=== PATIENT | male | born 1970 | race Caucasian/White ===

== ENCOUNTER 2018-09-28 09:36 | Day surgery (SDC) | payer BC ==
[2018-09-28 11:09] VITALS: TEMP 97.9
--- NOTE | 2018-09-28 11:57 | US ---
EXAMINATION TYPE: US renal artery duplex complet DATE OF EXAM: 09/28/2018 COMPARISON: US CLINICAL HISTORY: HTN, I10. MEASUREMENTS: RENAL SIZE: Rt Kidney: 10.3 x 5.7 x 6.1 cm Lt Kidney: 10.8 x 5.9 x 5.4 cm RESISTANCE INDEX Right: 0.69 Left: 0.69 RA/AO RATIO (< 3.5 ) Right: 1.2 Left: 1.3 RA VELOCITY ( < 180 cm/s) Right: 150 Left: 159 Renals and aorta unremarkable. No ultrasound evidence for renal artery stenosis. Good upstroke on seg mentals at renal hilum. Low resistive waveforms noted throughout. Kidneys show normal cortical medullary differentiation.Grayscale, color Doppler, spectral Doppler reinaldo ging performed. IMPRESSION: Renal artery stenosis is not evident.
--- NOTE | 2018-09-28 13:00 | CT ---
DATE OF EXAM: 09/28/2018 COMPARISON: NONE CT DLP: 1067 mGycm HISTORY: An area PROCEDURE: Maximal barrier technique was utilized. After informed consent, the skin overlying a suit able path to the left kidney lower pole was localized using CT guidance, the skin was prepped and jaqui ped. Lidocaine was used for local anesthesia. A skin bailey made with a scalpel. Using CT guidance, a 17-gauge needle was advanced into in position at the posterior and inferior cortex of the left kidn ey where coaxial placement of an 18-gauge needle was used and core biopsy obtained. Four passes made in total. Hemostasis was achieved. There was no immediate complication and patient remained in sta ble condition. Specimen submitted to Pathology. IMPRESSION: Status post CT guided core biopsy of left renal cortex, pathology pending. This procedur e performed by the undersigned.
[2018-09-28 17:43] VITALS: BP 101/58; PULSE 85; RESP 18
== END 2018-09-28 16:29 | disposition home or self-care (01) ==
LOC: RADPROMAIN 09:36
PROVIDERS: ATTEND Internal Medicine
DX: R80.9 Proteinuria, unspecified (principal); I10 Essential (primary) hypertension; R60.0 Localized edema
CPT/HCPCS: 77012; 86850; 86900; 86901; 93975

== ENCOUNTER → 2019-09-07 | Outpatient (CLI) | payer BC | END | disposition home or self-care (01) | LOC: LABMAIN 19:57 | PROVIDERS: ATTEND Emergency Medicine | DX: R05 Cough (principal) | CPT/HCPCS: 87635 ==

== ENCOUNTER → 2019-11-12 | Outpatient (CLI) | payer BC | END | disposition home or self-care (01) | LOC: LABMAIN 18:28 | PROVIDERS: ATTEND Internal Medicine Hematology & Oncology | DX: J06.9 Acute upper respiratory infection, unspecified (principal) ==

== ENCOUNTER → 2020-11-06 | Outpatient (CLI) | payer BC ==
--- NOTE | 2020-11-06 12:36 | CT ---
EXAMINATION TYPE: CT abdomen pelvis wo con DATE OF EXAM: 11/06/2020 HISTORY: LLQ pain CT DLP: 317.5 mGycm. Automated Exposure Control for Dose Reduction was Utilized. TECHNIQUE: CT scan of the abdomen and pelvis is performed with oral but without IV contrast. COMPARISON: NONE FINDINGS: Within the limitations of a non-contrast study, the following observations are made. LUNG BASES: No significant abnormality is appreciated. LIVER/GB: No significant abnormality is appreciated. PANCREAS: No significant abnormality is seen. SPLEEN: No significant abnormality is seen. ADRENALS: No significant abnormality is seen. KIDNEYS: No renal calculi or hydronephrosis seen bilaterally. Mild distention of bladder. Adjacent sc attered pelvic phleboliths. BOWEL: Small sized hiatal hernia. Oral contrast reaches level of the proximal left colon. Contrast do es pass through jejunal loops in the left upper to mid abdomen making evaluation of this level slight ly suboptimal. There are diverticula in the left and sigmoid colon with mild to borderline Moderate i ll-defined fluid and fat stranding centered at the junction left and sigmoid colon in the left lower quadrant/pelvis near axial images 48 through 56. No free air. No well-formed fluid collection or absc ess noted. Oval 1.8 x 1.2 cm focal prominence in the bowel axial image 49 favors fecalith over a vill ous polyp. Correlation with colonoscopy advised if this has not been performed in last 3 years. GENITAL ORGANS: No gross abnormality seen. LYMPH NODES: No greater than 1cm abdominal or pelvic lymph nodes are appreciated. OSSEOUS STRUCTURES: No significant abnormality is seen. OTHER: Surgical changes right inguinal region suspected. IMPRESSION: A mild to borderline moderate acute uncomplicated diverticulitis near junction of left an d sigmoid colon as detailed above.
== END | disposition home or self-care (01) ==
LOC: RADCTMAIN 11:32
PROVIDERS: ATTEND Internal Medicine Hematology & Oncology
DX: K57.32 Diverticulitis of large intestine without perforation or abscess without bleeding (principal)
CPT/HCPCS: 74176; Q9967

== ENCOUNTER → 2021-07-06 | Outpatient (CLI) | payer BC ==
[~2021-07-06] MED LIST: TIXAGEVIMAB/CILGAVIMAB (EUA) 300 MG/3 ML COMBO.PKG IM NR
[2021-07-06 08:02] VITALS: BP 160/85; PULSE 75; RESP 16; TEMP 97.7
== END ==
LOC: PROCWHC3 07:51
PROVIDERS: ATTEND Registered Nurse Oncology
DX: Z92.25 Personal history of immunosuppression therapy (principal)

== ENCOUNTER → 2024-02-19 | Outpatient (CLI) | payer BC ==
--- NOTE | 2024-02-19 18:32 | CT ---
EXAMINATION TYPE: CT chest wo con DATE OF EXAM: 02/19/2024 6:17 PM COMPARISON: 11/06/2020 CLINICAL INDICATION: Male, 54 years old with history of R91.1 solitary pulmonary nodule; PHH, nodule TECHNIQUE: Multiple axial images were obtained through the chest. Sagittal and coronal reformats were created for review. MIP was performed on a separate workstation. Contrast used: mL of (None if empty) Oral contrast used: (None if empty) CT DLP: 230.1 mGycm, Automated exposure control for dose reduction was used. FINDINGS: LUNGS/ PLEURA: No focal consolidation, pneumothorax or pleural effusion. No suspicious nodules identi fied. 3 mm right calcified granuloma which when comparing in frontal projection similar to a radiogra ph is 24 mm away from the nipple. Benign intrafissural lymph node in the right minor fissure. AIRWAY: Patent and unremarkable. HEART: Size within normal limits. MEDIASTINUM: No gross evidence of adenopathy. Small hiatal hernia. VASCULATURE: No aortic aneurysm. MUSCULOSKELETAL: Mild disc degeneration changes are present throughout the thoracolumbar spine. SOFT TISSUES/LYMPH NODES: Unremarkable. LOWER NECK: No significant findings. UPPER ABDOMEN: No significant findings. IMPRESSION: No suspicious findings. No evidence for lymphadenopathy, no acute process in the chest or upper abdom en. There is a benign calcified granuloma in the right lung. [facility], , 02/19/2024 6:30 PM
== END | disposition home or self-care (01) ==
LOC: RADCTMAIN 18:00
PROVIDERS: ATTEND Internal Medicine Hematology & Oncology
DX: R91.1 Solitary pulmonary nodule (principal); J84.10 Pulmonary fibrosis, unspecified
CPT/HCPCS: 71250

== ENCOUNTER → 2024-04-01 | Outpatient (CLI) | payer BC ==
--- NOTE | 2024-04-02 07:55 | CT ---
EXAMINATION TYPE: CT abdomen pelvis wo con DATE OF EXAM: 04/01/2024 5:36 PM COMPARISON: CT abdomen pelvis most recent from 11/06/2020 CLINICAL INDICATION: Male, 54 years old with history of N18.4 CHRONIC KIDNEY DISEASE, STAGE 4 (SEVERE ); Dr. Carrero states that this is a follow up on vascular, has stage 4 kidney disease. Last GFR TECHNIQUE: Axial CT abdomen pelvis wo con;Sagittal and coronal reformats were created on a separate workstation. Contrast used: mL of , (none if empty) Oral contrast used: without Oral Contrast (none if empty) CT DLP: 349.8 mGycm, Automated exposure control for dose reduction was used. FINDINGS: LOWER CHEST: Unremarkable ABDOMEN LIVER: Unremarkable GALLBLADDER AND BILE DUCTS: Unremarkable. PANCREAS: Unremarkable. SPLEEN: Unremarkable. ADRENAL GLANDS: Unremarkable. KIDNEYS AND URETERS: Mild atrophic kidneys bilaterally. No evidence of hydronephrosis or renal calcul us. The ureters are unremarkable. PELVIS BLADDER: No evidence for wall thickening or mass given limitations of exam. REPRODUCTIVE: Unremarkable. ABDOMEN & PELVIS STOMACH AND BOWEL: Scattered colonic diverticula. No evidence of bowel obstruction. PERITONEUM/RETROPERITONEUM: No evidence of pneumoperitoneum or free fluid. VASCULATURE: No evidence of aortic aneurysm. No significant atherosclerosis. Minimal calcified plaque in the internal iliac arteries bilaterally. MUSCULOSKELETAL: No acute osseous abnormalities. Mild disc degeneration changes are present throughou t the thoracolumbar spine. LYMPH NODES: No gross evidence for lymphadenopathy. SOFT TISSUE/ABDOMINAL WALL: Fat-containing inguinal hernias. IMPRESSION: 1. No evidence for acute process. 2. No significant atherosclerotic disease. 3. Bilateral fat-containing inguinal hernias. 4. Colonic diverticulosis. [facility], , 04/02/2024 7:53 AM
== END | disposition home or self-care (01) ==
LOC: RADCTMAIN 17:04
PROVIDERS: ATTEND Internal Medicine Hematology & Oncology
DX: N18.4 Chronic kidney disease, stage 4 (severe) (principal); K40.20 Bilateral inguinal hernia, without obstruction or gangrene, not specified as recurrent; K57.30 Diverticulosis of large intestine without perforation or abscess without bleeding; Z20.89 Contact with and (suspected) exposure to other communicable diseases; Z13.9 Encounter for screening, unspecified
CPT/HCPCS: 74176